=== PATIENT | female | born 1940 | race Caucasian/White ===

== ENCOUNTER → 2016-08-13 | Outpatient (CLI) | payer OTHER ==
--- NOTE | 2016-08-13 15:31 | DX ---
PA and lateral chest. Clinical History: URI, rule out pneumonia. Comparison Study: February 29, 2012.. Findings: Patchy focal infiltrate in the right lower lobe is new from prior study, compatible with pn eumonia. Left lung is clear. Heart size is normal. No pleural effusion.. Visualized osseous structures appear normal. Impression: Right lower lobe infiltrate compatible with pneumonia.
== END ==
LOC: BMCIMAGING 11:14
PROVIDERS: ATTEND Internal Medicine
DX: R91.8 Other nonspecific abnormal finding of lung field (principal); B97.89 Other viral agents as the cause of diseases classified elsewhere; Z87.891 Personal history of nicotine dependence; J06.9 Acute upper respiratory infection, unspecified
CPT/HCPCS: 71020; G0463

== ENCOUNTER → 2016-08-27 | Outpatient (CLI) | payer OTHER | LOC: BMCIMAGING 08:32 | PROVIDERS: ATTEND Internal Medicine | DX: J18.1 Lobar pneumonia, unspecified organism (principal) ==

== ENCOUNTER → 2016-10-08 | Outpatient (CLI) | payer OTHER | LOC: BMCIMAGING 08:19 | PROVIDERS: ATTEND Internal Medicine | DX: R91.8 Other nonspecific abnormal finding of lung field (principal) ==

== ENCOUNTER → 2016-12-07 | Outpatient (CLI) | payer OTHER | LOC: BMCIMAGING 11:50 | PROVIDERS: ATTEND Internal Medicine | DX: J44.9 Chronic obstructive pulmonary disease, unspecified (principal); K21.9 Gastro-esophageal reflux disease without esophagitis; I10 Essential (primary) hypertension; K62.1 Rectal polyp; E66.3 Overweight; R93.8 Abnormal findings on diagnostic imaging of other specified body structures; Z80.0 Family history of malignant neoplasm of digestive organs ==